=== PATIENT | female | born 1970 | race Caucasian/White ===

== ENCOUNTER → 2017-11-27 | Outpatient (CLI) | payer OTHER ==
[~2017-11-27] MED LIST: Augmentin 875-1 EACH PO; HYDACE5 PO; METR500 PO; Norco 5-325 Ta1 EACH PO
[2017-11-27 15:24] LABS: U Amphetamine Screen DETECTED; U Barbituate Screen Not Detected; U Benzodiazapine Screen Not Detected; U Buprenorphine Screen Not Detected; U Cannabinoids Screen DETECTED; U Cocaine Screen Not Detected; U Methadone Screen Not Detected; U Methamphetamine Screen DETECTED; U Opiates Screen Not Detected; U Oxycodone Screen Not Detected; U Phencyclidine Screen Not Detected; U Propoxyphene Screen Not Detected
== END ==
LOC: LAB 14:12 → LAB SHORT 14:12
PROVIDERS: Nurse Practitioner Family
DX: Z51.81 Encounter for therapeutic drug level monitoring (principal); Z79.899 Other long term (current) drug therapy

== ENCOUNTER 2018-11-09 20:18 | Emergency (ER) | payer OTHER ==
[~2018-11-09] VITALS: Ht 160 cm; Wt 82.5 kg
== END 2018-11-09 21:01 | disposition home or self-care (01) ==
LOC: ER 20:18
DX: S46.001A Unspecified injury of muscle(s) and tendon(s) of the rotator cuff of right shoulder, initial encounter (principal); X58.XXXA Exposure to other specified factors, initial encounter; F17.200 Nicotine dependence, unspecified, uncomplicated
CPT/HCPCS: 99283

== ENCOUNTER 2020-12-16 11:22 | Emergency (ER) | payer OTHER ==
[~2020-12-16] VITALS: Ht 160 cm; Wt 81.7 kg
[2020-12-16] MEDS ORDERED: Mupirocin22 GM TOP (12:00)
[2020-12-16] MEDS ORDERED: CEPH500 PO (12:00)
[2020-12-16] MEDS ORDERED: Bactrim Ds Tab1 EACH PO (12:00)
== END 2020-12-16 12:10 | disposition home or self-care (01) ==
LOC: ER 11:22
DX: T24.011A Burn of unspecified degree of right thigh, initial encounter (principal); L08.9 Local infection of the skin and subcutaneous tissue, unspecified; F17.200 Nicotine dependence, unspecified, uncomplicated
CPT/HCPCS: 99283; A9270

== ENCOUNTER 2024-09-21 20:03 | Emergency (ER) | payer OTHER ==
[~2024-09-21] VITALS: Ht 160 cm; Wt 86.2 kg
[~2024-09-21 20:03] MED LIST changes: +Bactrim Ds Tab1 EACH PO; +CEPH500 PO; +Mupirocin22 GM TOP
[2024-09-21 20:11] VITALS: BP 160/98
[2024-09-21] MEDS ORDERED: Betamethasone Sod Phos/Acetate 6 MG/ML 5ML VIAL IM ONE (20:35)
[2024-09-21] MEDS ORDERED: Triamcinolone Inj Susp 40 MG / ML 1ML Vial IM ONE ×2 (20:35→21:10)
[2024-09-21] MEDS ORDERED: Ketorolac Tromethamine 10 MG Tab PO ONE (21:15)
== END 2024-09-21 21:23 | disposition home or self-care (01) ==
LOC: ER 20:03
DX: L23.7 Allergic contact dermatitis due to plants, except food (principal); F41.9 Anxiety disorder, unspecified; F17.200 Nicotine dependence, unspecified, uncomplicated; Z79.899 Other long term (current) drug therapy
CPT/HCPCS: 96372; 99282-25; A9270; J0702; J3301